=== PATIENT | female | born 1955 | race African-American/Black ===

== ENCOUNTER 2018-01-21 11:58 | Observation (INO) ==
--- NOTE | 2018-01-21 12:20 | DR.GENAD ---
HPI Time Seen Time Seen by Provider: 01/21/18 12:15 PCP Primary Care Physician: KELLY BULLARD Complaint/Symptoms Chief Complaint:: PT. WAS SEEN BY KELLY BULLARD YESTERDAY AND HAD SOME LAB WORK DONE AND HER HGB WAS 6.0. PT. WAS SENT TO THE ER FOR FURTHER EVALUATION. PT. C/O FATIGUE. Source History Provided: Patient and Family Member Mode of Arrival Mode of Arrival: Wheelchair Timing Onset of Chief Complaint: 01/21/18 PMH PMH Past Medical History: Yes Past Medical History: Arthritis, CVA and Hypertension Past Medical History Comment: CERVICAL CANCER Past Surgical History: Yes Surgical History: Appendectomy, Hysterectomy and Other Past Surgical History Comment: BACK SURGERY, BREAST REDUCTION Family History History of Family Medical Conditions: Yes Family Medical History: Hypertension Social History Does patient currently use any type of tobacco product: No Have you used tobacco products in the last 12 months: No Type of Tobacco Use: None Does any household member use tobacco: No Alcohol Use: None Do you use any recreational Drugs:: No Lives With: Family Lives Where: Home infectious screening In the last 2 months have you had wt loss of >10#?: NO Have you had fever, night sweats or hemotysis?: No Have you traveled outside the country in the last 6 months?: No Isolation: Standard PE Vital Signs Vitals: Temperature 99.2 F Pulse Rate 75 Respiratory Rate 17 Blood Pressure 109/53 O2 Sat by Pulse Oximetry 99 General Limitations: Language Barrier (s/p CVA ) General Appearance: Alert and In No Apparent Distress Head Head Exam: Normal Inspection, Atraumatic and Normocephalic Eyes Eye exam: Normal Appearance, PERRL and EOMI ENT ENT Exam: Normal Exam, Normal Oropharynx, Normal External Ear Exam and Mucous Membranes Moist External Ear Exam: Normal External Inspection and Auricular Hematoma TM/Canal Exam: Bilateral: Normal Nose Exam: Normal Nose Exam and Crepitus Mouth Exam: Normal Inspection Neck Neck Exam: Normal Inspection and Full ROM Chest Chest Inspection: Normal Inspection Respiratory Respiratory Exam: Normal Lung Sounds Bilat and Accessory Muscle Use Respiratory Exam: Bilateral: Clear to Auscultation Abdominal Exam Abdominal Exam: Normal Inspection Abdominal Tenderness: negative RUQ, RLQ and LUQ Extremities Extremities Exam: Normal Inspection and Other (right hemiparesis) Neurologic Neurological Exam: Alert, Oriented X3 and Other (s/p CVA, non verbal, Right caro -paresis) Psychiatric Psychiatric Exam: Normal Affect and Normal Mood COURSE Consultation Called: 12:05 Call Returned: 12:20 Consultation Comments: Dr. Ching agreed to admit for further treatment ROR Labs Reviewed Result Diagrams: 01/21/18 12:25 01/21/18 12: Laboratory: WBC 5.2 X10^3/uL (3.6-10.0) 01/21/18 12: RBC 3.28 X10^6/uL (3.5-5.4) L 01/21/18 12: Hgb 6.1 g/dL (12.0-16.0) L* 01/21/18: Hct 20.8 % (36.0-47.0) L 01/21/18: MCV 63.5 fL (80.0-100.0) L 01/21/18: MCH 18.8 pg (27.0-34.0) L 01/21/18: MCHC 29.5 g/dL (33.0-35.0) L 01/21/18 12: RDW 19.5 % (11.6-16.5) H 01/21/18: Plt Count 305 X10^3/uL (150.0-450.0) 01/21/18: Plt Count Comment Adequate (ADEQUATE) 01/21/18: MPV 9.1 fL (7.4-11.0) 01/21/18: Neut % (Auto) 58.5 % (42.0-75.0) 01/21/18: Lymph % (Auto) 31.8 % (21.0-51.0) 01/21/18 12: [place] % (Auto) 7.3 % (0.0-13.0) 01/21/18: Eos % (Auto) 1.7 % (0.9-2.9) 01/21/18 12: Baso % (Auto) 0.7 % (0.2-1.0) 01/21/18 12: Neut # (Auto) 3.0 x10^3/uL (2.2-4.8) 01/21/18 12:25 Lymph # (Auto) 1.6 X10^3/uL (1.3-2.9) 01/21/18 12:25 [place] # (Auto) 0.4 x10^3/uL (0.3-0.8) 01/21/18 12:25 Eos # (Auto) 0.1 x10^3/uL (0.0-0.2) 01/21/18 12:25 Baso # (Auto) 0.0 X10^3/uL (0.0-0.1) 01/21/18 12:25 Absolute Nucleated RBC 0.0 /100WBC 01/21/18 12:25 Plt Morphology Comment Normal (NORMAL) 01/21/18 12:25 RBC Morphology Abnormal (NORMAL) A 01/21/18 12:25 Hypochromasia 3+ A 01/21/18 12:25 Microcytosis 2+ A 01/21/18 12:25 Absolute Retic 0.0739 10^6/uL 01/21/18 12:25 Percent Retic 2.30 % (0.8-2.2) H 01/21/18 12:25 Diagnosis Discharge Problem: Anemia
[2018-01-21 12:47] LABS: BASOPHILS % (AUTO) 0.7 % (0.2-1.0); EOSINOPHILS # (AUTO) 0.1 x10^3/uL (0.0-0.2); EOSINOPHILS % (AUTO) 1.7 % (0.9-2.9); HEMATOCRIT 20.8 % (36.0-47.0); LYMPHOCYTES # (AUTO) 1.6 X10^3/uL (1.3-2.9); LYMPHOCYTES % (AUTO) 31.8 % (21.0-51.0); MEAN CORPUSCULAR HEMOGLOBIN 18.8 pg (27.0-34.0); MEAN CORPUSCULAR HGB CONC 29.5 g/dL (33.0-35.0); MEAN CORPUSCULAR VOLUME 63.5 fL (80.0-100.0); MEAN PLATELET VOLUME 9.1 fL (7.4-11.0); MONOCYTES # (AUTO) 0.4 x10^3/uL (0.3-0.8); MONOCYTES % (AUTO) 7.3 % (0.0-13.0); NEUTROPHILS % (AUTO) 58.5 % (42.0-75.0); PLATELET COUNT 305 X10^3/uL (150.0-450.0); RED BLOOD COUNT 3.28 X10^6/uL (3.5-5.4); RED CELL DISTRIBUTION WIDTH 19.5 % (11.6-16.5); WHITE BLOOD COUNT 5.2 X10^3/uL (3.6-10.0)
[2018-01-21 12:50] LABS: HEMOGLOBIN 6.1 g/dL (12.0-16.0)
[2018-01-21 12:51] LABS: HYPOCHROMASIA 3+; MICROCYTOSIS 2+; PLATELET MORPHOLOGY COMMENT NORMAL (NORMAL)
[2018-01-21 13:32] LABS: ALANINE AMINOTRANSFERASE 16 Units/L (12-78); ALBUMIN 3.4 g/dL (3.4-5.0); ALKALINE PHOSPHATASE 58 Units/L (46-116); ASPARTATE AMINO TRANSFERASE 14 Units/L (15-37); BLOOD UREA NITROGEN 11 mg/dL (7-18); CALCIUM 8.7 mg/dL (8.5-10.1); CARBON DIOXIDE 28.7 mmol/L (21-32); CHLORIDE 105 mmol/L (98-107); CREATININE 0.87 mg/dL (0.55-1.02); SODIUM 141 mmol/L (136-145); TOTAL PROTEIN 7.7 g/dL (6.4-8.2); eGFR NON BLACK RACES > 60 (>60)
[2018-01-21] MEDS ORDERED: ZOFRAN INJ 4 MG VIAL IVP PRN (14:47)
[2018-01-21] MEDS ORDERED: TYLENOL 325 MG TAB PO ONE (14:56)
[2018-01-21] MEDS ORDERED: BENADRYL INJ 50 MG VIAL IVP ONE (14:57)
[2018-01-21 15:04] VITALS: BMI 36.0
[2018-01-21] MEDS ORDERED: NS 250 ML IV 250 ML IV ONE ×2 (15:15→15:24)
[2018-01-21] MEDS ORDERED: K-LYTE EFFERVESCENT PO PRN (18:45)
[2018-01-21] MEDS ORDERED: K-RIDER 10 MEQ/NS 100 ML 10 MEQ/100 ML BAG IV PRN (18:45)
[2018-01-21] MEDS ORDERED: POTASSIUM CHL 60 MEQ/NS 0.45% 500 ML IV PRN (18:45)
[2018-01-21] MEDS ORDERED: POTASSIUM CHL 40 MEQ/NS 0.45% 500 ML IV PRN (18:45)
[2018-01-21] MEDS ORDERED: POTASSIUM CHLORIDE LIQ 20 MEQ UDC PO PRN (18:45)
[2018-01-21] MEDS ORDERED: K-LYTE EFFERVESCENT PO ONE (21:00)
[2018-01-22 05:29] LABS: BASOPHILS % (AUTO) 0.7 % (0.2-1.0); EOSINOPHILS # (AUTO) 0.1 x10^3/uL (0.0-0.2); EOSINOPHILS % (AUTO) 2.3 % (0.9-2.9); HEMATOCRIT 25.8 % (36.0-47.0); HEMOGLOBIN 8.2 g/dL (12.0-16.0); LYMPHOCYTES # (AUTO) 2.2 X10^3/uL (1.3-2.9); LYMPHOCYTES % (AUTO) 37.6 % (21.0-51.0); MEAN CORPUSCULAR HEMOGLOBIN 21.8 pg (27.0-34.0); MEAN CORPUSCULAR HGB CONC 31.8 g/dL (33.0-35.0); MEAN CORPUSCULAR VOLUME 68.7 fL (80.0-100.0); MONOCYTES # (AUTO) 0.3 x10^3/uL (0.3-0.8); MONOCYTES % (AUTO) 5.9 % (0.0-13.0); NEUTROPHILS # (AUTO) 3.1 x10^3/uL (2.2-4.8); NEUTROPHILS % (AUTO) 53.5 % (42.0-75.0); PLATELET COUNT 270 X10^3/uL (150.0-450.0); RED BLOOD COUNT 3.76 X10^6/uL (3.5-5.4); RED CELL DISTRIBUTION WIDTH 24.6 % (11.6-16.5); WHITE BLOOD COUNT 5.9 X10^3/uL (3.6-10.0)
[2018-01-22 05:59] LABS: ALANINE AMINOTRANSFERASE 16 Units/L (12-78); ALBUMIN 3.1 g/dL (3.4-5.0); ALKALINE PHOSPHATASE 53 Units/L (46-116); ASPARTATE AMINO TRANSFERASE 13 Units/L (15-37); BLOOD UREA NITROGEN 6 mg/dL (7-18); CALCIUM 8.3 mg/dL (8.5-10.1); CARBON DIOXIDE 27.5 mmol/L (21-32); CHLORIDE 107 mmol/L (98-107); SODIUM 142 mmol/L (136-145); TOTAL PROTEIN 7.1 g/dL (6.4-8.2); eGFR NON BLACK RACES > 60 (>60)
[2018-01-22 06:01] LABS: ANISOCYTOSIS 2+; HYPOCHROMASIA 3+; MICROCYTOSIS 1+; PLATELET MORPHOLOGY COMMENT NORMAL (NORMAL)
[2018-01-22] MEDS: PROTONIX INJ 40 MG VIAL IVP SCH (10:52)
[2018-01-22 11:26] LABS: BILIRUBIN,URINE NEGATIVE (NEGATIVE); BLOOD/HEMOGLOBIN,URINE NEGATIVE (NEGATIVE); GLUCOSE, URINE NEGATIVE (NEGATIVE); KETONES,URINE NEGATIVE (NEGATIVE); LEUKOCYTE ESTERASE ,URINE NEGATIVE (NEGATIVE); NITRITES,URINE NEGATIVE (NEGATIVE); PROTEIN,URINE NEGATIVE (NEGATIVE); UROBILINOGEN,URINE NORMAL (NORMAL)
[2018-01-22 11:29] LABS: APPEARANCE,URINE CLEAR (CLEAR); COLOR,URINE YELLOW (YELLOW)
--- NOTE | 2018-01-22 13:28 | DR.H&P ---
H&P - History & Physical for Day of: H&P Date: 01/21/18 - Chief Complaint Chief Complaint: WEAKNESS - History of Present Illness History of Present Illness: 62 BF ER ADMISSION AFTER PRESENTING WITH CO WEAKNESS. PT HAD ABNORMAL LABS FROM DR KEYES OFFICE REVEALING ANEMIA, LOW IRON. PT HGB 6.1 ON ADMISSION, PT IS POOR HISTORIAN. PT ADMITTED FOR TREATMENT OF WEAKNESS, ANEMIA. - Past Medical History Past Medical History: Anemia, Arthritis, CVA, Hypertension - Past Surgical History Surgical History: Appendectomy, Hysterectomy, Ortho Surgery, Other - Family History Family Medical History: Hypertension - Social History Does patient currently use any type of tobacco product: No Have you used tobacco products in the last 12 months: No Type of Tobacco Use: None Does any household member use tobacco: No Alcohol Use: None Drug Use: None - Medications Home Medications: No Known Drug Allergies Allergy (Verified 01/21/18 12:05) CONTINUE taking the following medications amlodipine 1 tab PO DAILY 01/21/18 [History] apixaban [Eliquis] 1 tab PO BID 01/21/18 [History] atorvastatin 1 tab PO HS 01/21/18 [History] meloxicam 1 tab PO DAILY 01/21/18 [History] tramadol 1 tab PO Q6HR PRN 01/21/18 [History] - Review of Systems Constitutional: Weakness Eyes: No Symptoms Reported ENT: No Symptoms Reported Respiratory: No Symptoms Reported Cardiovascular: No Symptoms Reported Gastrointestinal: Nausea Genitourinary: No Symptoms Reported Musculoskeletal: No Symptoms Reported Skin: No Symptoms Reported Neurological: Change in Speech - Physical Exam Vital Signs: Temperature 98.0 F Pulse Rate [Left Brachial] 63 Pulse Rate 75 Respiratory Rate 18 Blood Pressure [Left Arm] 113/56 Blood Pressure 109/53 O2 Sat by Pulse Oximetry 100 Oriented: Person, Unable to test (IMPAIRED SPEECH, DIFFICULT TO UNDERSTAND) Eyes: Normal Ear: Normal Nose: Normal Throat: Normal Respiratory: RLL Diminished, LLL Diminished Cardiovascular: Normal : Normal Auscultation: Bowel Sounds: Normal Palpation: Normal Tenderness: Normal Skin: Decreased [place] Musculoskeletal: Normal Psychiatric: Normal Mood Description: Calm Speech Pattern: Unclear - Assessment/Plan (1) Anemia Qualifiers: Anemia type: unspecified type Qualified Code(s): D64.9 - Anemia, unspecified Status: Acute Plan: ADMIT, OCCULT STOOL. PROTONIX 40MG IV DAILY. HOLD NSAIDS. TRANSFUSE 2 UNITS PRBC. AM LABS, GENTLE HYDRATION,. EKG AND CXR, ADMISSION LABS (2) Hypertension Status: Acute (3) History of CVA (cerebrovascular accident) Status: Acute (4) Weakness Status: Acute - Allergies Allergies/Adverse Reactions: Allergies Allergy/AdvReac Type Severity Reaction Status Date / Time No Known Drug Allergies Allergy Verified 01/21/18 12:05
[2018-01-22] MEDS ORDERED: ULTRAM PO PRN (13:35)
--- NOTE | 2018-01-22 13:36 | PCM.PROG ---
Progress Note - Progress Note for Day of Date of Exam: 01/22/18 - Subjective Subjective: 62 BF ADMITTED WITH SYMPTOMATIC ANEMIA, WEAKNESS. PT IS S/P TRANSFUSION PRBC. PT HAS HX CVA AND HAS APHAGIA, OR LIMITED VERBAL RESPONSES. PT NODDING HEAD FOR "YES" WHEN ASKING IF SHE FEELS BETTER. 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 PLAN TO CONTINUE TO MONITOR BP, H& H, RESUME HOME MEDICATION, HOLDING NSAIDS. CONTINUE ELIQUIS AT THIS TIME DUE TO AFIB AND HX OF CVA - Past Medical Family Social History Past Med/Fam/Surg Hx: No changes since H&P Allergies: Allergies No Known Drug Allergies Allergy (Verified 01/21/18 12:05) - Vital Signs and I&O's Vital Signs: Temperature 98.0 F Pulse Rate [Left Brachial] 63 Pulse Rate 75 Respiratory Rate 18 Blood Pressure [Left Arm] 113/56 Blood Pressure 109/53 O2 Sat by Pulse Oximetry 100 Intake and Output: Intake & Output 01/20/18 01/21/18 01/22/18 01/23/18 11:59 11:59 11:59 11:59 Intake Total 2089 / 2089 Output Total 400 / 400 Balance 1690 / 1690 - Physical Exam Oriented: Person, Unable to test (IMPAIRED SPEECH, DIFFICULT TO UNDERSTAND) Eyes: Normal Ear: Normal Nose: Normal Throat: Normal Respiratory: Diminished Cardiovascular: Normal : Normal Auscultation: Bowel Sounds: Normal Tenderness: Normal Skin: Decreased [place] Musculoskeletal: Normal Psychiatric: Normal Mood Description: Calm Speech Pattern: Unclear (LIMITED VERBAL RESPONSES DUE TO PREVIOUS CVA) - Laboratory and Diagnostics Result Diagrams: 01/23/18 04:25 01/23/18 04:25 Labs: Laboratory WBC 5.9 X10^3/uL (3.6-10.0) 01/22/18 04:45 RBC 3.76 X10^6/uL (3.5-5.4) 01/22/18 04:45 Hgb 8.2 g/dL (12.0-16.0) L D 01/22/18 04:45 Hct 25.8 % (36.0-47.0) L 01/22/18 04:45 MCV 68.7 fL (80.0-100.0) L 01/22/18 04:45 MCH 21.8 pg (27.0-34.0) L 01/22/18 04:45 MCHC 31.8 g/dL (33.0-35.0) L 01/22/18 04:45 RDW 24.6 % (11.6-16.5) H 01/22/18 04:45 Plt Count 270 X10^3/uL (150.0-450.0) 01/22/18 04:45 Plt Count Comment Adequate (ADEQUATE) 01/22/18 04:45 MPV 9.0 fL (7.4-11.0) 01/22/18 04:45 Neut % (Auto) 53.5 % (42.0-75.0) 01/22/18 04:45 Lymph % (Auto) 37.6 % (21.0-51.0) 01/22/18 04:45 [place] % (Auto) 5.9 % (0.0-13.0) 01/22/18 04:45 Eos % (Auto) 2.3 % (0.9-2.9) 01/22/18 04:45 Baso % (Auto) 0.7 % (0.2-1.0) 01/22/18 04:45 Neut # (Auto) 3.1 x10^3/uL (2.2-4.8) 01/22/18 04:45 Lymph # (Auto) 2.2 X10^3/uL (1.3-2.9) 01/22/18 04:45 [place] # (Auto) 0.3 x10^3/uL (0.3-0.8) 01/22/18 04:45 Eos # (Auto) 0.1 x10^3/uL (0.0-0.2) 01/22/18 04:45 Baso # (Auto) 0.0 X10^3/uL (0.0-0.1) 01/22/18 04:45 Absolute Nucleated RBC 0.0 /100WBC 01/22/18 04:45 Plt Morphology Comment Normal (NORMAL) 01/22/18 04:45 RBC Morphology Abnormal (NORMAL) A 01/22/18 04:45 Hypochromasia 3+ A 01/22/18 04:45 Anisocytosis 2+ A 01/22/18 04:45 Microcytosis 1+ A 01/22/18 04:45 Absolute Retic 0.0739 10^6/uL 01/21/18 12:25 Percent Retic 2.30 % (0.8-2.2) H 01/21/18 12:25 INR Target Range - 01/21/18 13:40 INR 1.46 (0.8-1.3) H 01/21/18 13:40 APTT 39.4 SECONDS (22.9-36.5) H 01/21/18 13:40 PTT Comment - 01/21/18 13:40 Sodium 142 mmol/L (136-145) 01/22/18 04:45 Corrected Sodium TNP 01/22/18 04:45 Potassium 3.7 mmol/L (3.5-5.1) 01/22/18 09:00 Chloride 107 mmol/L (98-107) 01/22/18 04:45 Carbon Dioxide 27.5 mmol/L (21-32) 01/22/18 04:45 BUN 6 mg/dL (7-18) L 01/22/18 04:45 Creatinine 0.70 mg/dL (0.55-1.02) 01/22/18 04:45 Est GFR (MDRD) Af Amer > 60 (>60) 01/22/18 04:45 Est GFR (MDRD) Non-Af > 60 (>60) 01/22/18 04:45 Glucose 91 mg/dL (65-99) 01/22/18 04:45 Calcium 8.3 mg/dL (8.5-10.1) L 01/22/18 04:45 Corrected Calcium 9.0 mg/dL (8.5-10.1) 01/22/18 04:45 Magnesium 1.9 mg/dL (1.7-2.9) 01/21/18 13:18 Total Bilirubin 0.60 mg/dL (0.2-1.0) 01/22/18 04:45 AST 13 Units/L (15-37) L 01/22/18 04:45 ALT 16 Units/L (12-78) 01/22/18 04:45 Alkaline Phosphatase 53 Units/L (46-116) 01/22/18 04:45 Total Protein 7.1 g/dL (6.4-8.2) 01/22/18 04:45 Albumin 3.1 g/dL (3.4-5.0) L 01/22/18 04:45 Globulin 4.0 g/dL (2.5-4.5) 01/22/18 04:45 Albumin/Globulin Ratio 0.8 Ratio (1.1-2.1) L 01/22/18 04:45 Specimen Type Clean catch urine 01/22/18 11:11 Urine Color Yellow (YELLOW) 01/22/18 11:11 Urine Appearance Clear (CLEAR) 01/22/18 11:11 Urine pH 8.0 (5.0 - 8.0) 01/22/18 11:11 Ur Specific [place] 1.015 (1.000-1.030) 01/22/18 11:11 Urine Protein Negative (NEGATIVE) 01/22/18 11:11 Urine Glucose (UA) Negative (NEGATIVE) 01/22/18 11:11 Urine Ketones Negative (NEGATIVE) 01/22/18 11:11 Urine Occult Blood Negative (NEGATIVE) 01/22/18 11:11 Urine Nitrite Negative (NEGATIVE) 01/22/18 11:11 Urine Bilirubin Negative (NEGATIVE) 01/22/18 11:11 Urine Urobilinogen Normal (NORMAL) 01/22/18 11:11 Ur Leukocyte Esterase Negative (NEGATIVE) 01/22/18 11:11 Blood Type O POSITIVE 01/21/18 13:40 Antibody Screen Negative 01/21/18 13:40 Crossmatch See Detail 01/21/18 13:40 - Plan (1) Anemia Status: Acute Qualifiers: Anemia type: unspecified type Qualified Code(s): D64.9 - Anemia, unspecified Plan: OCCULT STOOL, CT ABD AND PELVIS. PROTONIX 40MG IV DAILY. HOLD NSAIDS. S /P 2 UNITS PRBC. AM LABS, GENTLE HYDRATION,. EKG AND CXR ON ADMISSION (2) Hypertension Status: Acute (3) History of CVA (cerebrovascular accident) Status: Acute Plan: ELIQUIS, WITH BLEEDING PRECAUTIONS. BP AND LIPID CONTROL (4) Weakness Status: Acute (5) Atrial fibrillation Status: Acute
[2018-01-22] MEDS: NORVASC TAB 10 MG PO SCH (13:44)
[2018-01-22] MEDS ORDERED: NS 100 ML IV 100 ML IV ONE (15:06)
--- NOTE | 2018-01-22 16:02 | CT ---
HISTORY: Abdominal pain, bloating, anemia Study: CT abdomen and pelvis with contrast Comparison: None Technique: Multiple axial images of the abdomen and pelvis were obtained with IV contrast. Oral contrast was ad ministered. Dose reduction techniques including Automated Exposure Control (AEC) and adjustment of mA and kV were utilized. Findings: Cardiomegaly is noted. The lung bases are clear. The liver, spleen, pancreas, and adrenal glands are unremarkable. Gallbladder is removed. There is 1.5 cm fatty left renal mass compatible with an angio myolipoma. There is an additional cyst at the lower pole of the left kidney that appears simple. No s tones or obstructive uropathy identified. No free intraperitoneal air. Oral contrast reaches the distal small bowel all. The appendix is not vi sualized. No ascites is seen. There is moderate retained stool throughout the colon and rectum. There are degenerative changes of the thoracolumbar spine and bilateral hips without acute osseous ab normality. The vascular structures are within normal limits for age. No pathologically enlarged lymph nodes are identified. Urinary bladder is unremarkable. Uterus is removed. There is a spinal stimulat or device in the thoracic spine. IMPRESSION: 1. No acute abnormality identified. 2. Moderate retained stool throughout the colon suggesting constipation. 3. 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 4. Postsurgical changes as described. Reported By:
[2018-01-22] MEDS ORDERED: COLACE CAP 100 MG PO PRN (16:07)
[2018-01-22] MEDS: COLACE CAP 100 MG PO SCH ×2 (16:22→20:48)
[2018-01-22] MEDS: MILK OF MAGNESIA PO SCH ×3 (16:23→20:51)
[2018-01-22] MEDS ORDERED: COLACE CAP 100 MG PO SCH (17:00)
[2018-01-22] MEDS ORDERED: MICRO K EXTEN CAP 10 MEQ PO ONE ×2 (17:13→17:16)
[2018-01-22] MEDS: MAGNESIUM SULFATE 1 GRAM/100 mL PREMIX 1 GM/100 ML BAG IV PRN ×2 (17:25→18:25)
[2018-01-22] MEDS: ELIQUIS PO SCH (20:48)
[2018-01-22] MEDS ORDERED: LIPITOR TAB 40 MG PO SCH (21:00)
[2018-01-23 04:56] LABS: BASOPHILS # (AUTO) 0.1 X10^3/uL (0.0-0.1); BASOPHILS % (AUTO) 1.1 % (0.2-1.0); EOSINOPHILS # (AUTO) 0.2 x10^3/uL (0.0-0.2); EOSINOPHILS % (AUTO) 2.3 % (0.9-2.9); HEMATOCRIT 28.6 % (36.0-47.0); HEMOGLOBIN 9.1 g/dL (12.0-16.0); LYMPHOCYTES % (AUTO) 30.1 % (21.0-51.0); MEAN CORPUSCULAR HEMOGLOBIN 21.6 pg (27.0-34.0); MEAN CORPUSCULAR HGB CONC 31.6 g/dL (33.0-35.0); MEAN CORPUSCULAR VOLUME 68.3 fL (80.0-100.0); MEAN PLATELET VOLUME 9.1 fL (7.4-11.0); MONOCYTES # (AUTO) 0.4 x10^3/uL (0.3-0.8); MONOCYTES % (AUTO) 5.5 % (0.0-13.0); PLATELET COUNT 297 X10^3/uL (150.0-450.0); RED BLOOD COUNT 4.19 X10^6/uL (3.5-5.4); RED CELL DISTRIBUTION WIDTH 24.1 % (11.6-16.5); WHITE BLOOD COUNT 6.6 X10^3/uL (3.6-10.0)
[2018-01-23 05:05] LABS: ALANINE AMINOTRANSFERASE 16 Units/L (12-78); ALBUMIN 3.3 g/dL (3.4-5.0); ALKALINE PHOSPHATASE 59 Units/L (46-116); ASPARTATE AMINO TRANSFERASE 18 Units/L (15-37); BLOOD UREA NITROGEN 5 mg/dL (7-18); CALCIUM 8.7 mg/dL (8.5-10.1); CARBON DIOXIDE 25.1 mmol/L (21-32); CHLORIDE 105 mmol/L (98-107); COR CA(FOR HYPOALB) 9.3 mg/dL (8.5-10.1); CREATININE 0.82 mg/dL (0.55-1.02); MAGNESIUM 2.4 mg/dL (1.7-2.9); SODIUM 138 mmol/L (136-145); TOTAL PROTEIN 7.7 g/dL (6.4-8.2); eGFR NON BLACK RACES > 60 (>60)
[2018-01-23 05:28] LABS: ANISOCYTOSIS 3+; HYPOCHROMASIA 2+; MICROCYTOSIS 1+; OVALOCYTES PRESENT; PLATELET MORPHOLOGY COMMENT NORMAL (NORMAL)
[2018-01-23] MEDS: MILK OF MAGNESIA PO SCH (09:22)
[2018-01-23] MEDS: COLACE CAP 100 MG PO SCH (09:22)
[2018-01-23] MEDS: PROTONIX INJ 40 MG VIAL IVP SCH (09:23)
[2018-01-23] MEDS: NORVASC TAB 10 MG PO SCH (09:23)
[2018-01-23] MEDS: ELIQUIS PO SCH (09:23)
[2018-01-23 12:30] VITALS: BP 118/75
[2018-01-23] MEDS ORDERED: MICRO K EXTEN CAP 10 MEQ PO ONE (17:13)
== END 2018-01-23 14:10 | disposition home or self-care (01) ==
LOC: EDBD → MED/SURG 11:58 → ER 11:58 → MED/SURG 13:58
PROVIDERS: ADMIT Internal Medicine; ATTEND Internal Medicine
DX: D17.71 Benign lipomatous neoplasm of kidney; R79.1 Abnormal coagulation profile; I10 Essential (primary) hypertension; R53.1 Weakness; I48.91 Unspecified atrial fibrillation; D50.8 Other iron deficiency anemias; E87.6 Hypokalemia; I69.320 Aphasia following cerebral infarction; N28.1 Cyst of kidney, acquired; Z79.899 Other long term (current) drug therapy
CPT/HCPCS: 36415; 36430; 74177; 80053; 81003; 82270; 83735; 84132; 85025; 85045; 85610; 85730; 86850; 86900; 86901; 86922; 93005; 96365; 99284; A4216; A4222; C9113; P9016; G0378; J1200; J3475; J3490; J7050; J8499